=== PATIENT | male | born 1950 | race Caucasian/White ===

== ENCOUNTER 2017-08-07 07:09 | Day surgery (SDC) | payer MEDICARE, BC ==
[~2017-08-07 07:09] MED LIST: Acetaminophen 325 MG Tab PO PRN; Cataract Ophth Solution EYERT ONE; Moxifloxacin 0.5% Ophth Soln 3 ML Bottle EYERT ONE; Ondansetron 4 MG/2 ML SDV IVPUSH PRN; Phenylephrine 10% Ophth Soln 5 ML Bot EYERT ONE; Phenylephrine 10% Ophth Soln 5 ML Bot EYERT PRN; Povidone-Iodine 5% Sterile Ophth Soln 30 ML Bottle EYERT ONE; Proparacaine 0.5% Ophth Soln 15 ML Bottle EYERT ONE; Sodium Chloride 0.9% 10 ML Syringe FLUSH PRN; Timolol Maleate 0.5% Ophth Soln 5 ML Bottle EYERT ONE
[2017-08-07] MEDS ORDERED: Midazolam 1 MG/ML 2 ML SDV IV ONE (07:10)
[2017-08-07] MEDS ORDERED: Sodium Chloride 0.9% 10 ML Syringe IV ONE (07:10)
[2017-08-07] MEDS ORDERED: Dexamethasone 4 MG/ML SDV IV ONE (07:10)
[2017-08-07] MEDS ORDERED: Tetracaine HCl/PF 0.5% 4 ML Bottle EYERT ONE (08:13)
[2017-08-07] MEDS ORDERED: Povidone-Iodine 5% Sterile Ophth Soln 30 ML Bottle EYERT ONE (08:13)
[2017-08-07] MEDS ORDERED: Lidocaine 1% 30 ML SDV INJECT ONE (08:21)
[2017-08-07] MEDS ORDERED: Trypan Blue 0.06% Ophth Soln 0.5 ML Syringe EYERT ONE (08:31)
[2017-08-07] MEDS ORDERED: Vancomycin 500 MG SDV EYERT ONE (08:32)
[2017-08-07] MEDS ORDERED: Dexamethasone 4 MG/ML SDV IOCULAR ONE (08:32)
[2017-08-07] MEDS ORDERED: Chondroitin Sulfate/Hyaluronate Sodium Ophth Inj 0.5 ML Syringe IOCULAR ONE ×2 (08:35→08:38)
[2017-08-07] MEDS ORDERED: Balanced Salt Solution Ophth Irrig 15 ML Bottle EYERT ONE (08:37)
[2017-08-07] MEDS ORDERED: Dexamethasone/Neomycin/Polymyxin B Ophth Oint 3.5 GM Tube EYERT ONE (08:45)
[2017-08-07] MEDS ORDERED: Apraclonidine 0.5% Ophth Soln 5 ML Bot EYERT ONE (08:45)
[2017-08-07 09:57] VITALS: BP 149/72
--- NOTE | 2017-08-07 10:35 | OR ---
DATE: DIAGNOSIS: Complex mature cataract with Trypan Blue. PROCEDURE PERFORMED: Complex cataract, right eye, with Tritan blue. INDICATION: Mr. Machado was seen in the clinic. His examination revealed advanced cataract with best spectacle corrected vision of 20/70. I explained options; I offered cataract surgery; and I explained risks including the potential for infection, retinal detachment, loss of vision, and need for additional surgery amongst others. He voiced understanding. Requested cataract surgery. He requested a monofocal implant. OPERATIVE DESCRIPTION: After informed consent was obtained and the risks, benefits, and alternatives were explained, the patient was brought to the OR, and topical anesthesia was administered. He was prepped and draped in the sterile fashion. Attention was placed on the right eye. A sterile lid speculum was placed into the right eye to allow operative exposure. Two full-thickness paracentesis was made temporal. Preservative-free lidocaine followed by viscoelastic was injected into the anterior chamber. A 2.75-mm incision was then made temporally. Trypan Blue was then injected into the anterior chamber to stain the anterior capsule, left in position for 30 seconds. Additional viscoelastic was injected to promote egress of the Trypan Blue. A bent needle cystotome was then used to create a small stephan in the anterior capsule. Argent[place] flag sign was noted. The capsule ran peripherally and bidirectionally, superior and inferior. The inferior lip of the capsulorrhexis was lifted. Rhexis did not run to the zonules and completed nasally. A second stephan was made in the anterior capsule, and the capsule was reconstructed connecting the capsule at 12 o'clock. Nucleus was then hydrodissected, gently rotated, and decompressed centrally. Nucleus was then removed using a quick- chop technique. Following removal of the nucleus, the remaining cortical material was removed using the irrigation/aspiration handpiece. Additional viscoelastic was injected into the capsular bag. Intraocular lens was inserted. Remaining viscoelastic was aspirated from both the anterior and posterior chambers. Wound and paracentesis sites were hydrated; 0.1 mL of preservative- free vancomycin was injected. Intraocular pressure was assessed and found to be in the high-normal range. Wound and paracentesis sites were Shelly negative. Postoperative medications were administered. Sterile patch and shield were placed over the eye. The patient was awakened from light sedation and transported to the postoperative recovery area having tolerated the procedure well. [facility] /[id number]
== END 2017-08-07 09:43 | disposition home or self-care (01) ==
LOC: DL.SDS 07:09
PROVIDERS: ATTEND Ophthalmology
DX: H26.9 Unspecified cataract (principal); I10 Essential (primary) hypertension; Z79.899 Other long term (current) drug therapy; Z91.030 Bee allergy status
CPT/HCPCS: 00142; A9270-GY; J1100; J2250; J3370; J7050; V2632

== ENCOUNTER 2019-04-04 12:13 | Emergency (ER) | payer MEDICARE, BC ==
[2019-04-04 12:27] VITALS: BP 131/43; PULSE 113
[2019-04-04] MEDS ORDERED: Ondansetron 4 MG/2 ML SDV IV ONE (12:32)
[2019-04-04 12:55] LABS: ANION GAP 27.5
--- NOTE | 2019-04-04 13:03 | CR ---
EXAMINATION: Chest 1V Frontal SEX: Male AGE: 68 years CLINICAL HISTORY: 68-year-old male emergency department complaining of shortness of breath (SOB). No comparisons. INTERPRETATION: Abnormal. 1. Asymmetric CONSOLIDATION periphery right lung base (RLL) with small ipsilateral dependent pleural effusion. Fever? Chest pain? Serum D dimer? WBC? Trauma? Differential diagnostic considerations include none pneumonic infiltrate and/or infarct. No overlying rib fracture. 2. Normal cardiac silhouette without pulmonary vascular congestion, cephalization of flow, alveolar edema or dependent effusion on the left. 3. Left lung field clear. 4. 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 CONCLUSION: RLL consolidation.
--- NOTE | 2019-04-04 19:55 | EDM.PDOC ---
Scribed by Betsy Edmondson 04/04/19 1247 for Bettye Mi NP ED HPI GENERAL MEDICAL PROBLEM - General Chief Complaint: Cardiovascular Problem Stated Complaint: AMBULANCE Time Seen by Provider: 04/04/19 12:23 Source of Information: Reports: Patient, EMS, EMS Notes Reviewed, RN, RN Notes Reviewed History Limitations: Reports: No Limitations - History of Present Illness INITIAL COMMENTS - FREE TEXT/NARRATIVE: Patient presents to ER by [facility] with a history of shortness of breath for 2 days. Alert and oriented. Patient has pitting edema and was given Lasix 40mg in the ambulance. Patient has a history of ETOH with 10 elle and rum's daily. He has increasing fatigue and is weak. Prem legs normally 1+ but increased last night to 2+ pitting per . He had nausea last night and vomited with questionable aspiration. He takes Valsartan 150mg 2 tablets daily. He also takes HCTZ and Prilosec. Denies CP or ever having a heart attach. Only history is HTN and LE edema. Placed on BIPAP as soon as he entered ER; sat on RA was 84; then after placing on BIPAP without 02, his sat increased to 94%. Onset Date: 04/03/19 Duration: Getting Worse Location: Reports: Chest Quality: Reports: Ache Severity: Severe Improves with: Reports: None Worsens with: Reports: None Associated Symptoms: Reports: No Other Symptoms - Related Data Allergies Allergy/AdvReac Type Severity Reaction Status Date / Time bee Allergy Anaphylactic Uncoded 04/04/19 12:20 Shock Home Meds: Home Meds Tadalafil [Cialis] 0.5 tab PO ASDIRECTED PRN 03/09/14 [History] Clobetasol [Clobetasol Propionate 0.05%] 1 squirt TOP ASDIRECTED 08/06/17 [ History] Magnesium 400 mg PO DAILY 08/06/17 [History] Valsartan [Diovan] 1 tab PO DAILY 08/06/17 [History] Past Medical History HEENT History: Reports: Cataract Cardiovascular History: Reports: Hypertension Respiratory History: Reports: None Gastrointestinal History: Reports: GERD Genitourinary History: Reports: Other (See Below) Other Genitourinary History: erectile dysfunction Musculoskeletal History: Reports: Amputation, Back Pain, Chronic, Gout, Other ( See Below) Other Musculoskeletal History: left second toe Neurological History: Reports: None Psychiatric History: Reports: None, Other (See Below) Other Psychiatric History: alconol abuse Endocrine/Metabolic History: Reports: Obesity/BMI 30+ Hematologic History: Reports: None Immunologic History: Reports: None Oncologic (Cancer) History: Reports: None Dermatologic History: Reports: Psoriasis - Infectious Disease History Infectious Disease History: Reports: Chicken Pox, MRSA, Mumps - Past Surgical History Head Surgeries/Procedures: Reports: None HEENT Surgical History: Reports: Cataract Surgery Cardiovascular Surgical History: Reports: None GI Surgical History: Reports: None Male Surgical History: Reports: None Musculoskeletal Surgical History: Reports: Amputation Social & Family History - Family History Family Medical History: Noncontributory - Caffeine Use Caffeine Use: Reports: None, Soda - Alcohol Use Alcohol Use History: Yes Days Per Week of Alcohol Use: 7 Number of Drinks Per Day: 10 Total Drinks Per Week: 70 ED ROS GENERAL - Review of Systems Review Of Systems: Comprehensive ROS is negative, except as noted in HPI. Constitutional: Reports: No Symptoms ED EXAM, GENERAL - Physical Exam Exam: See Below Exam Limited By: No Limitations General Appearance: Alert, WD/WN, Moderate Distress Nose: Normal Inspection Throat/Mouth: Normal Lips Head: Atraumatic, Normocephalic Neck: Normal Inspection, Supple, Full Range of Motion Respiratory/Chest: Crackles (bilateral) Cardiovascular: Other (+2 pitting edema upper and lower extremity. ) GI/Abdominal: Normal Bowel Sounds, Soft, Non-Tender, No Organomegaly, No Distention, No Abnormal Bruit, No Mass (Male) Exam: Deferred Rectal (Males) Exam: Deferred Back Exam: Normal Inspection, Full Range of Motion, NT Extremities: Other (small blisters with scabs bilateral lower extremities) Neurological: Alert, Oriented, CN II-XII Intact, Normal Cognition, Normal Gait, Normal Reflexes, No Motor/Sensory Deficits Psychiatric: Normal Affect, Normal Mood Skin Exam: Warm, Dry, Intact, Normal Color, No Rash EKG INTERPRETATION EKG Date: 04/04/19 Time: 12:15 Rhythm: Other (sinus tack 110) QRS: Other (Only in V2; no other EKG to compare) EKG Interpretation Comments: Q waves lead I, AVL, Mild depression in V3, V2. Discussed and sent to dr. Al- abid to review. No lytics at this time; Possible lateral infarct age indeterminate. NO CP. Course - Vital Signs Last Recorded V/S: Last Vital Signs Temp 36.4 C 04/04/19 12:15 Pulse 113 H 04/04/19 12:15 Resp 24 H 04/04/19 12:15 BP 131/43 L 04/04/19 12:15 Pulse Ox 82 L 04/04/19 12:15 - Orders/Labs/Meds Orders: Active Orders 24 hr Category Date Time Status EKG Documentation Completion [RC] STAT Care 04/04/19 12:31 Active Labs: Laboratory Tests 04/04/19 04/04/19 Range/Units 12:27 12:27 WBC 17.9 H (5.0-10.0) 10^3/uL RBC 1.87 L (4.6-6.2) 10^6/uL Hgb 5.2 L* D (14.0-18.0) g/dL Hct 15.1 L* (40.0-54.0) % MCV 80.7 D (80-100) fL MCH 27.8 (27.0-34.0) pg MCHC 34.4 (33.0-35.0) g/dL Plt Count 387 D (150-450) 10^3/uL Neut % (Auto) 91.3 H (42.2-75.2) % Lymph % (Auto) 3.1 L (20.5-50.1) % Nash % (Auto) 5.4 (2-8) % Eos % (Auto) 0.1 L (1.0-3.0) % Baso % (Auto) 0.1 (0.0-1.0) % Add Manual Diff Cytometry Technologist Sodium 123 L D (135-145) mmol/L Potassium 3.5 L (3.6-5.0) mmol/L Chloride 85 L D (101-111) mmol/L Carbon Dioxide 14.0 L (21.0-31.0) mmol/L Anion Gap 27.5 BUN 44 H D (7-18) mg/dL Creatinine 2.9 H D (0.6-1.3) mg/dL Est Cr Clr Drug Dosing 25.60 mL/min Estimated GFR (MDRD) 22 BUN/Creatinine Ratio 15.17 Glucose 76 (74-105) mg/dL Calcium 7.7 L D (8.4-10.2) mg/dl Total Bilirubin 3.5 H (0.2-1.0) mg/dL AST 163 H (10-42) IU/L ALT 66 H (10-60) IU/L Alkaline Phosphatase 218 H (42-121) IU/L Troponin I 0.07 H* (0.00-0.02) ng/ml B-Natriuretic Peptide 279 H (0-100) pg/ml Total Protein 6.1 L (6.7-8.2) g/dl Albumin 2.3 L (3.2-5.5) g/dl Globulin 3.8 Albumin/Globulin Ratio 0.61 Meds: Medications Discontinued Medications Generic Name Dose Route Start Last Admin Trade Name Freq PRN Reason Stop Dose Admin Ondansetron HCl 4 mg 04/04/19 12:32 04/04/19 12:35 Zofran IV 04/04/19 12:33 4 mg ONETIME ONE Administration - Radiology Interpretation Free Text/Narrative:: Chest x-ray: Consolidation periphery right lung base with small ipsilateral dependent pleural effusion. See rad report. No fevers. - Re-Assessments/Exams Free Text/Narrative Re-Assessment/Exam: 04/04/19 19:35 He appears to be in heart failure on admission with SOB, decreased sats; but BNP was normal; CXR not showing congested failure He responded well with 40 mg lasix and BIPAP 10/5 EKG showing bundle one lead and inferior infarct undetermined age. Discussed and reviewed with photo mask inspector at [facility]; Dr. Covington; but does not appear to be congruent with ST-elevation CO. His troponin are elevated 0.07. Mild nausea; zofran given No CP In route BP stable 120s systolic. Hypotensive after given lasix and BIPAP 87/47 ; that improved with without intervention. Low H/H 5.2 hgb - no bleeding or blood stools. He is a drinker and drinks daily. Hyponatremia 123 - IVF started Potassium stable at 3.5 Creat 2.9 renal failure; acute. discussed patients presentation, lab and Dr. Neal reviewed EKG. No need for lytics at this time. Will transfer emergently to [facility] via [facility]. VSS upon transfer and on bipap. Departure - Departure Time of Disposition: 16:00 Disposition: DC/Tfer to [facility] 02 Preliminary Cause of *Q: Cardiac Arrest Reason for Transfer *Q: Other Condition: Fair Clinical Impression: Respiratory distress, Elevated troponin, Hyponatremia, Lower extremity edema Anemia Qualifiers: Anemia type: other cause Other causes of anemia: other cause, not classified Qualified Code(s): D64.89 - Other specified anemias Acute renal failure Qualifiers: Acute renal failure type: unspecified Qualified Code(s): N17.9 - Acute kidney failure, unspecified Referrals: Fredy Wilson MD [Primary Care Provider] - Forms: ED Department Discharge Sepsis Event Note - Evaluation Sepsis Screening Result: No Definite Risk - Focused Exam Vital Signs: Vital Signs Temp Pulse Resp BP Pulse Ox 04/04/19 12:15 36.4 C 113 H 24 H 131/43 L 82 L Date Exam was Performed: 04/04/19 Time Exam was Performed: 19:29 - My Orders Last 24 Hours: My Active Orders 04/04/19 12:31 EKG Documentation Completion [RC] STAT - Assessment/Plan Last 24 Hours: My Active Orders 04/04/19 12:31 EKG Documentation Completion [RC] STAT I have read and agree with the documentation that has been completed regarding this visit. By signing this record, I attest that the documentation was completed in my physical presence and is an accurate record of the encounter.
== END 2019-04-04 14:01 ==
LOC: DL.ED 12:13
DX: R06.03 Acute respiratory distress (principal); I10 Essential (primary) hypertension; E87.1 Hypo-osmolality and hyponatremia; R60.0 Localized edema; R79.89 Other specified abnormal findings of blood chemistry; D64.89 Other specified anemias; N17.9 Acute kidney failure, unspecified; E66.9 Obesity, unspecified; Z79.899 Other long term (current) drug therapy; Z91.030 Bee allergy status
CPT/HCPCS: 36415; 71045; 80053; 83880; 84484; 85025; 93005; 96374; 99285; J2405

== ENCOUNTER 2019-04-17 09:09 | Inpatient (IN) | payer MEDICARE, BC ==
--- NOTE | 2019-04-17 13:03 | PCM.HP ---
H&P History of Present Illness - General Date of Service: 04/17/19 Admit Problem/Dx: Admitted for: Weakness and need to continue PT/OT Source of Information: Patient, Family, Old Records History Limitations: Reports: No Limitations - History of Present Illness Initial Comments - Free Text/Narative: Reji Rueda a 68 y.o.malewith medical history of hypertension, past history of spine and knee surgeries and alcohol abuse, but with no prior history of alcoholic liver disease, has also had right eye cataract surgery in the past. The patient was admitted at [facility] with multiple complaints including not feeling well in the last 2 weeks, progressive weakness, poor appetite and shortness of breath in the last 2-3 days. The leg swelling is actually longstanding, but also got significantly worse in the last few days. On admission,the patient was noted to be in acute respiratory failure secondary to pneumonia, hemoglobin was severely low at 5 g/dl . The patient also needing oxygen and admitted to the intensive care unit. He has received Blood transfusion was seen By GI and had no intervention. He was continue on lactulose and getting treated for acute alcoholic hepatitis. He had significant ascites and had paracentesis with 4 L of paracentesis. He is still very weak and will need to continue PT/OT. He is now admitted to Swing Bed to continue PT/ OT Onset of Symptoms: Reports: Gradual Duration of Symptoms: Reports: Day(s): Associated Symptoms: Reports: Confusion - Related Data Allergies/Adverse Reactions: Allergies Allergy/AdvReac Type Severity Reaction Status Date / Time bee Allergy Anaphylactic Uncoded 04/17/19 10:30 Shock Home Medications: Home Meds Tadalafil [Cialis] 0.5 tab PO ASDIRECTED PRN 03/09/14 [History] Clobetasol [Clobetasol Propionate 0.05%] 1 squirt TOP ASDIRECTED 08/06/17 [ History] Bumetanide [Bumex] 1 mg PO DAILY 04/17/19 [History] Calcitriol [Rocaltrol] 0.25 mcg PO .Q48HR 04/17/19 [History] Cholecalciferol (Vitamin D3) [Vitamin D] 1 cap PO ASDIRECTED 04/17/19 [History] Folic Acid 1 mg PO DAILY 04/17/19 [History] Lactulose 30 ml PO TID 04/17/19 [History] Magnesium Chloride [Slow-Mag] 143 mg PO BID 04/17/19 [History] Pantoprazole Sodium [Protonix] 40 mg PO DAILY 04/17/19 [History] Spironolactone [Aldactone] 25 mg PO DAILY 04/17/19 [History] Thiamine [Vitamin B-1] 100 mg PO DAILY 04/17/19 [History] Vancomycin [First-Vancomycin 25 Compounding Kit] 5 ml PO QID 04/17/19 [History] Vitamin B Complex [B Complex] 1 tab PO DAILY 04/17/19 [History] Past Medical History HEENT History: Reports: Cataract Cardiovascular History: Reports: Hypertension Respiratory History: Reports: None Other Respiratory History: Pneumonia-2019 Gastrointestinal History: Reports: GERD Genitourinary History: Reports: Acute Renal Failure, Other (See Below) Other Genitourinary History: erectile dysfunction Musculoskeletal History: Reports: Amputation, Back Pain, Chronic, Gout, Other ( See Below) Other Musculoskeletal History: left second toe Neurological History: Reports: None Psychiatric History: Reports: None, Other (See Below) Other Psychiatric History: alcohol abuse Endocrine/Metabolic History: Reports: Obesity/BMI 30+ Hematologic History: Reports: None Immunologic History: Reports: None Oncologic (Cancer) History: Reports: None Dermatologic History: Reports: Psoriasis - Infectious Disease History Infectious Disease History: Reports: C-Difficile - Past Surgical History Head Surgeries/Procedures: Reports: None HEENT Surgical History: Reports: Cataract Surgery Cardiovascular Surgical History: Reports: None GI Surgical History: Reports: None Male Surgical History: Reports: None Musculoskeletal Surgical History: Reports: Amputation Social & Family History - Family History Family Medical History: Noncontributory - Caffeine Use Caffeine Use: Reports: None, Soda H&P Review of Systems - Review of Systems: Review Of Systems: See Below General: Reports: Weakness, Fatigue, Weight Loss. Denies: Fever, Chills HEENT: Denies: Rhinitis, Sinus Congestion, Sore Throat, Visual Changes Pulmonary: Denies: Shortness of Breath, Wheezing, Cough, Sputum Cardiovascular: Reports: Edema. Denies: Chest Pain, Lightheadedness, Claudication Gastrointestinal: Denies: Abdominal Pain, Difficulty Swallowing, Nausea, Vomiting Genitourinary: Denies: Dysuria, Burning, Urgency, Flank Pain Musculoskeletal: Denies: Neck Pain, Shoulder Pain, Leg Pain, Joint Pain Skin: Reports: Jaundice. Denies: Cyanosis, Bruising, Pruritis, Rash Psychiatric: Denies: Confusion, Anxiety, Agitation Neurological: Denies: Confusion, Numbness, Tingling, Tremors Hematologic/Lymphatic: Reports: Anemia Immunologic: Reports: No Symptoms Exam - Exam Exam: See Below - Vital Signs Vital Signs: Last Vital Signs Temp 36.4 C 04/17/19 12:29 Pulse 98 04/17/19 12:29 Resp 18 04/17/19 12:29 BP 120/71 04/17/19 12:29 Pulse Ox 100 04/17/19 12:29 Weight: 88.632 kg - Exam Quality Assessment: DVT Prophylaxis. No: Supplemental Oxygen, Urinary Catheter General: Alert, Oriented, Cooperative HEENT: EOMI, Mucosa Moist & [place], Pupils Reactive, Scleral Icterus Neck: No: Lymphadenopathy, JVD, Thyromegaly Lungs: Clear to Auscultation, Normal Respiratory Effort Cardiovascular: Regular Rate, Regular Rhythm, Normal S1, Normal S2, Systolic Murmur GI/Abdominal Exam: Normal Bowel Sounds, Soft, Non-Tender. No: Guarding, Rebound (Male) Exam: Deferred Rectal (Males) Exam: Deferred Back Exam: Normal Inspection Extremities: Normal Inspection, Pedal Edema Skin: Warm, Dry, Intact Neurological: Cranial Nerves Intact Neuro Extensive - Mental Status: Alert, Oriented x3, Normal Mood/Affect, Normal Cognition, Memory Intact Neuro Extensive - Motor, Sensory, Reflexes: CN II-XII Intact, Normal Gait Psychiatric: Alert, Normal Affect, Normal Mood - Problem List (1) Alcohol abuse SNOMED Code(s): 23419927 ICD Code: F10.10 - ALCOHOL ABUSE, UNCOMPLICATED Status: Acute Current Visit: Yes (2) Alcoholic hepatitis with ascites SNOMED Code(s): 7160769171601035 ICD Code: K70.11 - ALCOHOLIC HEPATITIS WITH ASCITES Status: Acute Current Visit: Yes (3) Weakness SNOMED Code(s): 08169933 ICD Code: R53.1 - WEAKNESS Status: Acute Current Visit: Yes (4) Anemia SNOMED Code(s): 030241154 ICD Code: D64.9 - ANEMIA, UNSPECIFIED Status: Acute Current Visit: No Qualifiers: Anemia type: other cause Other causes of anemia: other cause, not classified Qualified Code(s): D64.89 - Other specified anemias (5) Hyponatremia SNOMED Code(s): 77357313 ICD Code: E87.1 - HYPO-OSMOLALITY AND HYPONATREMIA Status: Acute Current Visit: No (6) Lower extremity edema SNOMED Code(s): 333808062 ICD Code: R60.0 - LOCALIZED EDEMA Status: Acute Current Visit: No Problem List Initiated/Reviewed/Updated: Yes Orders Last 24hrs: Active Orders 24 hr Category Date Time Status OT Evaluation and Treatment [CONS] Routine Cons 04/17/19 12:16 Active PT Evaluation and Treatment [CONS] Routine Cons 04/17/19 12:16 Active Regular Diet [DIET] Diet 04/17/19 Lunch Active Assessment/Plan Comment:: This is a 68 y/O M with history of alcohol abuse, acute alcoholic hepatitis with ascites. Anemia was transferred from [facility] because of weakness and continuation of PT/OT for strengthening Impression and Plan: 1. Acute Alcoholic Hepatitis with ascites: The pt was admitted at [facility] with acute alcoholoic encepahlopaty and severe anemia -He had paracentesis is done with 4 L od ascitic fluid is drained -Will continue lactulose -Will continue aldactone at 25 mg daily 2. Anemia: This is secondary to GI bleed, his stool blood was positive -He was sen By GI and plan for EGD/Colonoscopy when medically optimised but the pt is refusing is any procedure -Will continue PPI -Will continue to transfuse once Hgb is <8 g/dl 3. Edema of Extremities: This is secondary to alcoholoc liver disease and poor nutrition - Will continue bumex and aldactone 4. Hypokalemia/Hypomagnesemia/Hypophosphatemia: This is sendary to liver disese and use of Lactulose -Check potassium, magnesim and phosphorus and replace as needed 6. Weakness: This is likely from recent hospitalization with acute alcoholic Hepatitis with ascities, poor appetite -Will consult PT/OT for evaluation and treatment 7. C. Diff Colitis: it is just diagnosed and will continue oral vancomycin X 1 0days DVT prophylaxis: Continue Heparin GI prophylaxis: Continue PPI Code Status: Wish to be Full Code
[2019-04-17] MEDS ORDERED: Acetaminophen 325 MG Tab PO PRN (13:38)
[2019-04-17] MEDS ORDERED: Docusate Sodium 100 MG Cap PO PRN (13:38)
[2019-04-17] MEDS ORDERED: CHOLECALCIFEROL PO SCH (13:45)
[2019-04-17] MEDS ORDERED: CLOBETASOL PROPIONATE 0.05% TOP SCH (13:45)
[2019-04-17] MEDS: Lactulose Soln 10 GM/15 ML 30 ML UD Cup PO SCH ×2 (14:10→21:39)
[2019-04-17] MEDS: Heparin Sodium 5,000 Units/ML Vial SUBCUT SCH ×2 (14:10→21:39)
[2019-04-17] MEDS: Vancomycin 125 MG Cap PO SCH ×3 (14:10→21:39)
[2019-04-18] MEDS: Heparin Sodium 5,000 Units/ML Vial SUBCUT SCH ×2 (05:36→14:23)
[2019-04-18] MEDS ORDERED: Pantoprazole 40 MG Tab.CR PO SCH (06:00)
[2019-04-18 07:10] LABS: ANION GAP 15.3
[2019-04-18 07:54] VITALS: BP 102/55; PULSE 89
[2019-04-18] MEDS ORDERED: Bumetanide 1 MG Tab PO SCH (09:00)
[2019-04-18] MEDS ORDERED: Folic Acid 1 MG Tab PO SCH (09:00)
[2019-04-18] MEDS ORDERED: Vitamin B Complex Cap PO SCH (09:00)
[2019-04-18] MEDS ORDERED: Spironolactone 25 MG Tab PO SCH (09:00)
[2019-04-18] MEDS ORDERED: Calcitriol 0.25 MCG Cap PO SCH (09:00)
[2019-04-18] MEDS ORDERED: Thiamine 100 MG Tab PO SCH (09:00)
[2019-04-18] MEDS: Lactulose Soln 10 GM/15 ML 30 ML UD Cup PO SCH ×2 (09:11→14:23)
[2019-04-18] MEDS: Vancomycin 125 MG Cap PO SCH ×3 (09:12→19:20)
[2019-04-18] MEDS ORDERED: Furosemide 40 MG/4 ML VIAL IVPUSH ONE (10:06)
[2019-04-18] MEDS ORDERED: Potassium Chloride 10 MEQ Tab.ER PO ONE (11:30)
--- NOTE | 2019-04-18 11:41 | PCM.PN ---
- General Info Date of Service: 04/18/19 Admission Dx/Problem (Free Text): Admitted for: Weakness and need to continue PT/OT Subjective Update: Pt was seen in room, doing well, No nausea or vomiting, No fever or chill, appetite is good Functional Status: Reports: Pain Controlled, Tolerating Diet, Ambulating (with assistance), Urinating - Review of Systems General: Reports: Weakness, Malaise. Denies: Fever, Chills HEENT: Denies: Dysphasia, Headaches, Sinus Congestion, Visual Changes Pulmonary: Denies: Shortness of Breath, Cough, Wheezing Cardiovascular: Reports: Edema. Denies: Chest Pain, Lightheadedness Gastrointestinal: Denies: Abdominal Pain, Diarrhea, Nausea, Vomiting Genitourinary: Denies: Dysuria, Burning, Urgency, Flank Pain Musculoskeletal: Denies: Neck Pain, Arm Pain, Leg Pain, Foot Pain Skin: Reports: Jaundice. Denies: Cyanosis, Dryness, Bruising, Pruritis, Rash Neurological: Denies: Confusion, Headache, Numbness, Tremors Psychiatric: Reports: No Symptoms - Patient Data Vitals - Most Recent: Last Vital Signs Temp 37.2 C 04/18/19 07:52 Pulse 89 04/18/19 07:52 Resp 20 04/18/19 07:52 BP 102/55 L 04/18/19 07:52 Pulse Ox 95 04/18/19 07:52 Weight - Most Recent: 88.632 kg I&O - Last 24 Hours: Intake & Output 04/17/19 04/18/19 04/18/19 22:59 06:59 14:59 Intake Total 450 Balance 450 Lab Results Last 24 Hours: Laboratory Results - last 24 hr 04/18/19 04/18/19 04/18/19 Range/Units 06:05 06:05 06:05 WBC 14.9 H (5.0-10.0) 10^3/uL RBC 2.25 L (4.6-6.2) 10^6/uL Hgb 7.2 L D (14.0-18.0) g/dL Hct 20.6 L* (40.0-54.0) % MCV 91.6 D (80-100) fL MCH 32.0 (27.0-34.0) pg MCHC 35.0 (33.0-35.0) g/dL Plt Count 361 (150-450) 10^3/uL Neut % (Auto) 69.7 (42.2-75.2) % Lymph % (Auto) 9.4 L (20.5-50.1) % [place] % (Auto) 15.1 H (2-8) % Eos % (Auto) 4.2 H (1.0-3.0) % Baso % (Auto) 1.6 H (0.0-1.0) % Add Manual Diff Yes Neutrophils % (Manual) 70 (42-75) % Band Neutrophils % 4 % Lymphocytes % (Manual) 10 L (20-50) % Monocytes % (Manual) 11 H (2-8) % Eosinophils % (Manual) 5 H (1-3) % Hypochromasia 2+ moderate PT 14.6 H (9.0-12.0) SEC INR 1.5 H (0.9-1.2) Sodium 136 D (135-145) mmol/L Potassium 3.3 L (3.6-5.0) mmol/L Chloride 102 D (101-111) mmol/L Carbon Dioxide 22.0 (21.0-31.0) mmol/L Anion Gap 15.3 BUN 44 H (7-18) mg/dL Creatinine 2.1 H (0.6-1.3) mg/dL Est Cr Clr Drug Dosing 35.36 mL/min Estimated GFR (MDRD) 31 Glucose 86 (74-105) mg/dL Calcium 8.0 L (8.4-10.2) mg/dl Phosphorus 3.7 (2.5-4.6) mg/dL Magnesium 1.5 L (1.8-2.5) mg/dL Med Orders - Current: Current Medications Acetaminophen (Tylenol) 650 mg PO Q4H PRN PRN Reason: Pain (mild 1-3 )/fever Bumetanide (Bumex) 1 mg PO DAILY [facility] Last Admin: 04/18/19 09:10 Dose: 1 mg Calcitriol (Rocaltrol) 0.25 mcg PO Q48H [facility] Last Admin: 04/18/19 09:19 Dose: 0.25 mcg Docusate Sodium (Colace) 100 mg PO DAILY PRN PRN Reason: Constipation Last Admin: 04/17/19 14:10 Dose: 100 mg Ergocalciferol (Vitamin D2) 1.25 mg PO MoTh@0900 [facility] Folic Acid (Folic Acid) 1 mg PO DAILY [facility] Last Admin: 04/18/19 09:11 Dose: 1 mg Heparin Sodium (Porcine) (Heparin Sodium) 5,000 units SUBCUT Q8HR [facility] Last Admin: 04/18/19 05:36 Dose: 5,000 units Lactulose (Cephulac) 30 gm PO TID [facility] Last Admin: 04/18/19 09:11 Dose: 30 gm Magnesium Oxide (Magnesium Oxide) 500 mg PO BID [facility] Non-Formulary Medication (Clobetasol [Clobetasol Propionate 0.05% Cream]) 1 squirt TOP ASDIRECTED [facility] Pantoprazole Sodium (Protonix) 40 mg PO ACBREAKFAST [facility] Last Admin: 04/18/19 05:35 Dose: 40 mg Potassium Chloride (Klor-Con 10) 40 meq PO ONETIME ONE Stop: 04/18/19 11:31 Spironolactone (Aldactone) 25 mg PO DAILY [facility] Last Admin: 04/18/19 09:10 Dose: 25 mg Thiamine HCl (Vitamin B-1) 100 mg PO DAILY [facility] Last Admin: 04/18/19 09:12 Dose: 100 mg Vancomycin HCl (Vancomycin) 125 mg PO QID [facility] Stop: 04/22/19 09:01 Last Admin: 04/18/19 09:12 Dose: 125 mg Vitamin B Complex (Vitamin B Complex) 1 each PO DAILY [facility] Last Admin: 04/18/19 09:12 Dose: 1 each Discontinued Medications Furosemide (Lasix) 40 mg IVPUSH NOW ONE Stop: 04/18/19 10:07 Magnesium Oxide (Magnesium Oxide) 250 mg PO BID [facility] Last Admin: 04/18/19 09:11 Dose: 250 mg - Exam Quality Assessment: DVT Prophylaxis. No: Supplemental Oxygen, Central Line/PICC , Urine Catheter General: Alert, Oriented, Cooperative, No Acute Distress HEENT: Pupils Equal, EOMI, Mucous Membr. Moist/[place], Scleral Icterus Neck: No JVD, No Thyromegaly. No: Lymphadenopathy Lungs: Clear to Auscultation, Normal Respiratory Effort. No: Crackles, Wheezing Cardiovascular: Regular Rate, Regular Rhythm, Murmurs GI/Abdominal Exam: Normal Bowel Sounds, Soft, Non-Tender. No: Guarding, Rigid, Rebound (Male) Exam: Deferred Back Exam: Normal Inspection Extremities: Normal Inspection, Pedal Edema Skin: Warm, Dry, Intact Neurological: No New Focal Deficit Psy/Mental Status: Alert, Normal Affect, Normal Mood Sepsis Event Note - Evaluation Sepsis Screening Result: No Definite Risk - Focused Exam Vital Signs: Vital Signs Temp Pulse Resp BP Pulse Ox 04/18/19 07:52 37.2 C 89 20 102/55 L 95 Date Exam was Performed: 04/18/19 Time Exam was Performed: 11:32 - Problem List & Annotations (1) Alcohol abuse SNOMED Code(s): 58622253 Code(s): F10.10 - ALCOHOL ABUSE, UNCOMPLICATED Status: Acute Current Visit: Yes (2) Alcoholic hepatitis with ascites SNOMED Code(s): 2740585682548905 Code(s): K70.11 - ALCOHOLIC HEPATITIS WITH ASCITES Status: Acute Current Visit: Yes (3) Weakness SNOMED Code(s): 51855879 Code(s): R53.1 - WEAKNESS Status: Acute Current Visit: Yes (4) Anemia SNOMED Code(s): 065850120 Code(s): D64.9 - ANEMIA, UNSPECIFIED Status: Acute Current Visit: No Qualifiers: Anemia type: other cause Other causes of anemia: other cause, not classified Qualified Code(s): D64.89 - Other specified anemias (5) Hyponatremia SNOMED Code(s): 44269383 Code(s): E87.1 - HYPO-OSMOLALITY AND HYPONATREMIA Status: Acute Current Visit: No (6) Lower extremity edema SNOMED Code(s): 924009769 Code(s): R60.0 - LOCALIZED EDEMA Status: Acute Current Visit: No - Problem List Review Problem List Initiated/Reviewed/Updated: Yes - My Orders Last 24 Hours: My Active Orders 04/17/19 12:16 OT Evaluation and Treatment [CONS] Routine PT Evaluation and Treatment [CONS] Routine 04/17/19 13:38 Patient Status [ADT] Routine Ambulate [RC] ASDIRECTED Up With Assistance [RC] ASDIRECTED Up ad Oumou [RC] ASDIRECTED Up to Chair [RC] ASDIRECTED Vital Signs [RC] QSHIFT Acetaminophen [Tylenol] 650 mg PO Q4H PRN Docusate Sodium [Colace] 100 mg PO DAILY PRN DVT/VTE Prophylaxis Reflex [OM.PC] Routine 04/17/19 13:40 Antiembolic Devices [RC] 09,21 Oxygen Therapy [RC] PRN Pulse Oximetry [RC] PRN 04/17/19 13:41 Antiembolic Hose [OM.PC] Per Unit Routine 04/17/19 13:45 Clobetasol [Clobetasol Propionate 0.05% Cream] 1 squirt TOP ASDIRECTED 04/17/19 14:00 Heparin Sodium 5,000 units SUBCUT Q8HR Lactulose [Cephulac] 30 gm PO TID Vancomycin 125 mg PO QID 04/17/19 17:15 Code Status [Resuscitation Status] Routine 04/17/19 Lunch Regular Diet [DIET] 04/18/19 06:00 Pantoprazole [ProTONIX] 40 mg PO ACBREAKFAST 04/18/19 06:05 RED BLOOD CELLS LP [BBK] Urgent TYPE AND SCREEN [BBK] Urgent 04/18/19 09:00 Bumetanide [Bumex] 1 mg PO DAILY Folic Acid 1 mg PO DAILY Spironolactone [Aldactone] 25 mg PO DAILY Thiamine [Vitamin B-1] 100 mg PO DAILY Vitamin B Complex 1 each PO DAILY calcitrioL [Rocaltrol] 0.25 mcg PO Q48H 04/18/19 10:06 Transfuse Red Blood Cells [COMM] Urgent Transfuse Red Blood Cells [COMM] Urgent 04/18/19 11:30 Potassium Chloride [Klor-Con 10] 40 meq PO ONETIME ONE 04/18/19 21:00 Magnesium Oxide 500 mg PO BID 04/20/19 09:00 Ergocalciferol (Vitamin D2) [Vitamin D2] 1.25 mg PO MoTh@0900 - Plan Plan:: This is a 68 y/O M with history of alcohol abuse, acute alcoholic hepatitis with ascites. [facility] and continuation of PT/OT for strengthening Impression and Plan: 1. Acute Alcoholic Hepatitis with ascites: The pt was admitted at [facility] with acute alcoholoic encepahlopaty and severe anemia -He had paracentesis is done with 4 L of ascitic fluid is drained -Will continue lactulose -Will continue Aldactone at 25 mg daily 2. Anemia: This is secondary to GI bleed, his stool occult blood was positive -He was seen By GI and plan for EGD/Colonoscopy when medically optimized but the pt is refusing is any procedure, I have again discussed with today the need for EGD/Colonoscopy -Will continue PPI -Will continue to transfuse once Hgb is <8 g/dl, his hgb today ( 04/18/19) was at 7.2 g/dl and will give 2 units of blood today ( 04/18/19) CBC check in AM 3. Edema of Extremities: This is secondary to alcoholoc liver disease and poor nutrition - Will continue bumex 1 mg daily and Aldactone at 25 mg daily 4. Hypokalemia/Hypomagnesemia/Hypophosphatemia: This is sendary to liver disease and use of Lactulose -His potassium is low and will give potassium chloride 40 meq PO X 1 dose now -His magnesium is also low and will change magnesium oxide to 500 mg BID [ was at 250 mg BID] -His phosphorus is acceptable -Will recheck Potassium and magnesium in AM 6. Weakness: This is likely from recent hospitalization with acute alcoholic Hepatitis with ascities, poor appetite - consulted PT/OT for evaluation and treatment and was seen by PT/OT 7. C. Diff Colitis: it is just diagnosed and will continue oral vancomycin X 10 days DVT prophylaxis: Continue Heparin GI prophylaxis: Continue PPI Code Status: He is Full Code
--- NOTE | 2019-04-18 13:16 | PCM.DCSUM1 ---
Discharge Summary - Hospital Course Free Text/Narrative:: Reji Rueda a 68 y.o.malewith medical history of hypertension, past history of spine and knee surgeries and alcohol abuse, but with no prior history of alcoholic liver disease, has also had right eye cataract surgery in the past. The patient was admitted at [facility] with multiple complaints including not feeling well in the last 2 weeks, progressive weakness, poor appetite and shortness of breath in the last 2-3 days. The leg swelling is actually longstanding, but also got significantly worse in the last few days. On admission,the patient was noted to be in acute respiratory failure secondary to pneumonia, hemoglobin was severely low at 5 g/dl . The patient also needing oxygen and admitted to the intensive care unit. He has received Blood transfusion was seen By GI and had no intervention. He was continue on lactulose and getting treated for acute alcoholic hepatitis. He had significant ascites and had paracentesis with 4 L of fluids drained. He is still very weak and will need to continue PT/OT. He is now admitted to [facility] [place] to continue PT/OT. His Hgb on admission ( 04/17/19) was 8.7 g/dl and hgb today ( 04/18/19) was 7.2 g/dl. Initially while he was in [facility] Refused EGD/ Colonoscopy ( has positive stool occult blood) but today his significant was able to convince him to have EGD/Colonoscopy. [facility] blood type and Screen was done but he has antibody and blood will will not be available until ( ) and [facility] is at [place]. Will transfer him to [facility] for Further care and evaluation. - Discharge Data Discharge Date: 04/18/19 Discharge Disposition: DC/Tfer to Acute Hospital 02 Condition: Good - Referral to Home Health Primary Care Physician: Fredy Wilson MD - Discharge Diagnosis/Problem(s) (1) Alcohol abuse SNOMED Code(s): 96617578 ICD Code: F10.10 - ALCOHOL ABUSE, UNCOMPLICATED Status: Acute Current Visit: Yes (2) Alcoholic hepatitis with ascites SNOMED Code(s): 2104308029152626 ICD Code: K70.11 - ALCOHOLIC HEPATITIS WITH ASCITES Status: Acute Current Visit: Yes (3) Weakness SNOMED Code(s): 32188722 ICD Code: R53.1 - WEAKNESS Status: Acute Current Visit: Yes (4) Anemia SNOMED Code(s): 737363855 ICD Code: D64.9 - ANEMIA, UNSPECIFIED Status: Acute Current Visit: No Qualifiers: Anemia type: other cause Other causes of anemia: other cause, not classified Qualified Code(s): D64.89 - Other specified anemias (5) Hyponatremia SNOMED Code(s): 00152876 ICD Code: E87.1 - HYPO-OSMOLALITY AND HYPONATREMIA Status: Acute Current Visit: No (6) Lower extremity edema SNOMED Code(s): 673528963 ICD Code: R60.0 - LOCALIZED EDEMA Status: Acute Current Visit: No - Patient Summary/Data Consults: Consultations 04/17/19 12:16 OT Evaluation and Treatment [CONS] Routine PT Evaluation and Treatment [CONS] Routine - Patient Instructions Diet: Heart Healthy Diet Activity: As Tolerated Notify Provider of: Increased Pain, Nausea and/or Vomiting - Discharge Plan Home Medications: Home Meds Tadalafil [Cialis] 0.5 tab PO ASDIRECTED PRN 03/09/14 [History] Clobetasol [Clobetasol Propionate 0.05% Cream] 1 squirt TOP ASDIRECTED 08/06/17 [History] Bumetanide [Bumex] 1 mg PO DAILY 04/17/19 [History] Calcitriol [Rocaltrol] 0.25 mcg PO .Q48HR 04/17/19 [History] Ergocalciferol (Vitamin D2) [Vitamin D2] 1 cap PO .MONTHURS 04/17/19 [History] Folic Acid 1 mg PO DAILY 04/17/19 [History] Lactulose 30 ml PO TID 04/17/19 [History] Magnesium Chloride [Slow-Mag] 143 mg PO BID 04/17/19 [History] Pantoprazole Sodium [Protonix] 40 mg PO ACBREAKFAST 04/17/19 [History] Spironolactone [Aldactone] 25 mg PO DAILY 04/17/19 [History] Thiamine [Vitamin B-1] 100 mg PO DAILY 04/17/19 [History] Vancomycin [First-Vancomycin 25 Compounding Kit] 5 ml PO QID 04/17/19 [History] Vitamin B Complex [B Complex] 1 tab PO DAILY 04/17/19 [History] - Discharge Summary/Plan Comment DC Time >30 min.: Yes Discharge Summary/Plan Comment: This is a 68 y/O M with history of alcohol abuse, acute alcoholic hepatitis with ascites. Anemia was transferred from [facility] because of weakness and continuation of PT/OT for strengthening Impression and Plan: 1. Acute Alcoholic Hepatitis with ascites: The pt was admitted at [facility] with acute alcoholoic encepahlopaty and severe anemia -He had paracentesis is done with 4 L of ascitic fluid is drained -Will continue lactulose -Will continue aldactone at 25 mg daily 2. Anemia: This is secondary to GI bleed, his stool occult blood was positive -He was sen By GI and plan for EGD/Colonoscopy but the pt refused is any procedure -Today his significant other convinced him to have the procedure and he agreed to have the procedure -Will continue PPI -His Hgb dropped from 8.7 g/dl on 04/17/19 to 7.2 g/dl on 04/18/19 and here at [place] Type and Screen was done and he has abnormal antibody and as per blood bank blood will not be available until ( 04/23/2019), because of the significant blood loss over 24 hrs he will be transferred to [facility] [place] 3. Edema of Extremities: This is secondary to alcoholic liver disease and poor nutrition - Will continue bumex at 1 mg daily and aldactone at 25 mg daily 4. Hypokalemia/Hypomagnesemia/Hypophosphatemia: This is sendary to liver disese and use of Lactulose -Potassium is low and he has received potassium chloride 40 meq X 1 dose now -His magnesium was also low, and changed magnesim oxide to 500 mg BID [ was at 250 mg BID] -His phosphorus is acceptable -Check potassium, magnesim and phosphorus and replace as needed 6. Weakness: This is likely from recent hospitalization with acute alcoholic Hepatitis with ascities, poor appetite -Will consult PT/OT for evaluation and treatment 7. C. Diff Colitis: it is just diagnosed and will continue oral vancomycin X 1 0 days DVT prophylaxis: Continue Heparin GI prophylaxis: Continue PPI Code Status: Wish to be Full Code - General Info Date of Service: 04/18/19 Subjective Update: He is doing well, has no nausea or vomiting has no increased shortness of breath , No fever or chill Functional Status: Reports: Pain Controlled, Tolerating Diet, Ambulating (with assistance), Urinating - Review of Systems General: Reports: Weakness, Fatigue, Appetite (acceptable). Denies: Fever, Chills HEENT: Denies: Headaches, Sinus Congestion, Sore Throat, Visual Changes Pulmonary: Denies: Shortness of Breath, Cough, Sputum, Wheezing Cardiovascular: Reports: Edema. Denies: Chest Pain, Lightheadedness Gastrointestinal: Denies: Abdominal Pain, Diarrhea, Nausea, Vomiting Genitourinary: Reports: Dysuria. Denies: Burning, Flank Pain Musculoskeletal: Denies: Neck Pain, Shoulder Pain, Foot Pain Skin: Reports: Jaundice. Denies: Cyanosis, Bruising, Pruritis Neurological: Reports: Confusion. Denies: Numbness, Paresthesia, Tingling, Tremors Psychiatric: Denies: Confusion, Anxiety - Patient Data Vitals - Most Recent: Last Vital Signs Temp 37.2 C 04/18/19 07:52 Pulse 89 04/18/19 07:52 Resp 20 04/18/19 07:52 BP 102/55 L 04/18/19 07:52 Pulse Ox 95 04/18/19 07:52 Weight - Most Recent: 88.632 kg I&O - Last 24 hours: Intake & Output 04/17/19 04/18/19 04/18/19 22:59 06:59 14:59 Intake Total 450 Balance 450 Lab Results - Last 24 hrs: Laboratory Results - last 24 hr 04/18/19 04/18/19 04/18/19 Range/Units 06:05 06:05 06:05 WBC 14.9 H (5.0-10.0) 10^3/uL RBC 2.25 L (4.6-6.2) 10^6/uL Hgb 7.2 L D (14.0-18.0) g/dL Hct 20.6 L* (40.0-54.0) % MCV 91.6 D (80-100) fL MCH 32.0 (27.0-34.0) pg MCHC 35.0 (33.0-35.0) g/dL Plt Count 361 (150-450) 10^3/uL Neut % (Auto) 69.7 (42.2-75.2) % Lymph % (Auto) 9.4 L (20.5-50.1) % [place] % (Auto) 15.1 H (2-8) % Eos % (Auto) 4.2 H (1.0-3.0) % Baso % (Auto) 1.6 H (0.0-1.0) % Add Manual Diff Yes Neutrophils % (Manual) 70 (42-75) % Band Neutrophils % 4 % Lymphocytes % (Manual) 10 L (20-50) % Monocytes % (Manual) 11 H (2-8) % Eosinophils % (Manual) 5 H (1-3) % Hypochromasia 2+ moderate PT 14.6 H (9.0-12.0) SEC INR 1.5 H (0.9-1.2) Sodium 136 D (135-145) mmol/L Potassium 3.3 L (3.6-5.0) mmol/L Chloride 102 D (101-111) mmol/L Carbon Dioxide 22.0 (21.0-31.0) mmol/L Anion Gap 15.3 BUN 44 H (7-18) mg/dL Creatinine 2.1 H (0.6-1.3) mg/dL Est Cr Clr Drug Dosing 35.36 mL/min Estimated GFR (MDRD) 31 Glucose 86 (74-105) mg/dL Calcium 8.0 L (8.4-10.2) mg/dl Phosphorus 3.7 (2.5-4.6) mg/dL Magnesium 1.5 L (1.8-2.5) mg/dL Blood Type Gel Antibody Screen Crossmatch 04/18/19 Range/Units 06:05 WBC (5.0-10.0) 10^3/uL RBC (4.6-6.2) 10^6/uL Hgb (14.0-18.0) g/dL Hct (40.0-54.0) % MCV (80-100) fL MCH (27.0-34.0) pg MCHC (33.0-35.0) g/dL Plt Count (150-450) 10^3/uL Neut % (Auto) (42.2-75.2) % Lymph % (Auto) (20.5-50.1) % [place] % (Auto) (2-8) % Eos % (Auto) (1.0-3.0) % Baso % (Auto) (0.0-1.0) % Add Manual Diff Neutrophils % (Manual) (42-75) % Band Neutrophils % % Lymphocytes % (Manual) (20-50) % Monocytes % (Manual) (2-8) % Eosinophils % (Manual) (1-3) % Hypochromasia PT (9.0-12.0) SEC INR (0.9-1.2) Sodium (135-145) mmol/L Potassium (3.6-5.0) mmol/L Chloride (101-111) mmol/L Carbon Dioxide (21.0-31.0) mmol/L Anion Gap BUN (7-18) mg/dL Creatinine (0.6-1.3) mg/dL Est Cr Clr Drug Dosing mL/min Estimated GFR (MDRD) Glucose (74-105) mg/dL Calcium (8.4-10.2) mg/dl Phosphorus (2.5-4.6) mg/dL Magnesium (1.8-2.5) mg/dL Blood Type A POSITIVE Gel Antibody Screen Positive Crossmatch See Detail Med Orders - Current: Current Medications Acetaminophen (Tylenol) 650 mg PO Q4H PRN PRN Reason: Pain (mild 1-3 )/fever Bumetanide (Bumex) 1 mg PO DAILY [facility] Last Admin: 04/18/19 09:10 Dose: 1 mg Calcitriol (Rocaltrol) 0.25 mcg PO Q48H [facility] Last Admin: 04/18/19 09:19 Dose: 0.25 mcg Docusate Sodium (Colace) 100 mg PO DAILY PRN PRN Reason: Constipation Last Admin: 04/17/19 14:10 Dose: 100 mg Ergocalciferol (Vitamin D2) 1.25 mg PO MoTh@0900 [facility] Folic Acid (Folic Acid) 1 mg PO DAILY [facility] Last Admin: 04/18/19 09:11 Dose: 1 mg Heparin Sodium (Porcine) (Heparin Sodium) 5,000 units SUBCUT Q8HR [facility] Last Admin: 04/18/19 05:36 Dose: 5,000 units Lactulose (Cephulac) 30 gm PO TID [facility] Last Admin: 04/18/19 09:11 Dose: 30 gm Magnesium Oxide (Magnesium Oxide) 500 mg PO BID [facility] Non-Formulary Medication (Clobetasol [Clobetasol Propionate 0.05% Cream]) 1 squirt TOP ASDIRECTED [facility] Pantoprazole Sodium (Protonix) 40 mg PO ACBREAKFAST [facility] Last Admin: 04/18/19 05:35 Dose: 40 mg Spironolactone (Aldactone) 25 mg PO DAILY [facility] Last Admin: 04/18/19 09:10 Dose: 25 mg Thiamine HCl (Vitamin B-1) 100 mg PO DAILY [facility] Last Admin: 04/18/19 09:12 Dose: 100 mg Vancomycin HCl (Vancomycin) 125 mg PO QID [facility] Stop: 04/22/19 09:01 Last Admin: 04/18/19 12:58 Dose: 125 mg Vitamin B Complex (Vitamin B Complex) 1 each PO DAILY [facility] Last Admin: 04/18/19 09:12 Dose: 1 each Discontinued Medications Furosemide (Lasix) 40 mg IVPUSH NOW ONE Stop: 04/18/19 10:07 Magnesium Oxide (Magnesium Oxide) 250 mg PO BID [facility] Last Admin: 04/18/19 09:11 Dose: 250 mg Potassium Chloride (Klor-Con 10) 40 meq PO ONETIME ONE Stop: 04/18/19 11:31 Last Admin: 04/18/19 12:58 Dose: 40 meq - Exam Quality Assessment: Reports: DVT Prophylaxis. Denies: Supplemental Oxygen, Central Line/PICC, Urine Catheter General: Reports: Alert, Oriented, Cooperative, No Acute Distress HEENT: Reports: Pupils Equal, EOMI, Mucous Membr. Moist/[place] Neck: Reports: No JVD, No Thyromegaly Lungs: Reports: Clear to Auscultation, Normal Respiratory Effort. Denies: Crackles, Wheezing Cardiovascular: Reports: Regular Rate, Regular Rhythm, Murmurs GI/Abdominal Exam: Normal Bowel Sounds, Soft, Non-Tender. No: Rigid, Rebound (Male) Exam: Deferred Rectal (Males) Exam: Deferred Back Exam: Reports: Normal Inspection Extremities: Normal Inspection, Pedal Edema Skin: Reports: Warm, Dry, Intact Neurological: Reports: No New Focal Deficit Psy/Mental Status: Reports: Alert, Normal Affect, Normal Mood
[2019-04-20] MEDS ORDERED: Ergocalciferol (Vitamin D2) 1.25 MG Cap PO SCH (09:00)
== END 2019-04-18 13:45 | DRG 948 ==
LOC: UNDOADMIN 11:48 → DL.MS 11:48
PROVIDERS: ADMIT Internal Medicine Nephrology; ATTEND Internal Medicine Nephrology
DX: R53.1 Weakness (principal); F10.188 Alcohol abuse with other alcohol-induced disorder; E87.1 Hypo-osmolality and hyponatremia; K70.11 Alcoholic hepatitis with ascites; D64.89 Other specified anemias; R60.0 Localized edema; E87.6 Hypokalemia; E83.42 Hypomagnesemia; E83.39 Other disorders of phosphorus metabolism; B96.89 Other specified bacterial agents as the cause of diseases classified elsewhere; G31.2 Degeneration of nervous system due to alcohol; I10 Essential (primary) hypertension; Z98.41 Cataract extraction status, right eye
CPT/HCPCS: 36415; 80048; 83735; 84100; 85025; 85610; 86850; 86870; 86900; 86901; 86920; 86922; 97162-GP; 97166-GO; A9270-GY; J1644